=== PATIENT | male | born 1960 | race Caucasian/White ===

== ENCOUNTER 2019-12-24 20:02 | Inpatient (IN) | payer BC ==
[2019-12-24] MEDS ORDERED: Sodium Chloride 0.9% 10 ML Syringe FLUSH PRN (20:10)
[2019-12-24] MEDS ORDERED: Lactated Ringers 1,000 ML IV SCH (20:15)
--- NOTE | 2019-12-24 20:15 | EDM.PDOC ---
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 And then today extremely short of breath had difficulty walking across the room without getting winded. denies pain Pain Score (Numeric/FACES): 0 - Related Data Allergies Allergy/AdvReac Type Severity Reaction Status Date / Time No Known Allergies Allergy Verified 12/24/19 21:10 Home Meds: Home Meds NK [No Known Home Meds] 12/24/19 [History] Past Medical History - Past Health History Medical/Surgical History: Denies Medical/Surgical History Social & Family History - Tobacco Use Tobacco Use Status *Q: Never Tobacco User - Caffeine Use Caffeine Use: Reports: Coffee - Recreational Drug Use Recreational Drug Use: No ED ROS GENERAL - Review of Systems Review Of Systems: See Below Constitutional: Reports: Fever, Chills, Weakness HEENT: Reports: No Symptoms Respiratory: Reports: Shortness of Breath, Cough. Denies: Wheezing, Sputum Cardiovascular: Reports: Dyspnea on Exertion GI/Abdominal: Reports: Nausea, Vomiting. Denies: Abdominal Pain : Reports: No Symptoms Musculoskeletal: Reports: Muscle Pain Skin: Reports: No Symptoms ED EXAM, GENERAL - Physical Exam Exam: See Below Exam Limited By: Respiratory Distress (Ill-appearing) General Appearance: Alert, Severe Distress Throat/Mouth: Other (Mouth is dry) Respiratory/Chest: Respiratory Distress, Decreased Breath Sounds, Accessory Muscle Use, Other Cardiovascular: No Murmur, Tachycardia GI/Abdominal: Soft, Non-Tender Course - Vital Signs Last Recorded V/S: Last Vital Signs Temp 100.5 F 12/24/19 21:00 Pulse 110 H 12/24/19 21:56 Resp 21 H 12/24/19 21:56 BP 137/88 12/24/19 21:56 Pulse Ox 94 L 12/24/19 21:56 - Orders/Labs/Meds Orders: Active Orders 24 hr Category Date Time Status Peripheral IV Care [RC] . DIRECTED Care 12/24/19 20:11 Active RT Post Treatment Assessment [RC] Click to Edit Care 12/24/19 20:44 Active CULTURE BLOOD [BC] Urgent Lab 12/24/19 21:24 Ordered CULTURE BLOOD [BC] Urgent Lab 12/24/19 21:24 Ordered Acetaminophen [TylenoL] Med 12/24/19 20:10 Active 650 mg PO Q4H PRN Albuterol/Ipratropium [Combivent Respimat] Med 12/24/19 22:00 Active 1 gm INH QID Cefepime [Maxipime] 1 gm Med 12/24/19 22:00 Ordered Sodium Chloride 0.9% [Normal Saline] 50 ml IV Q12H Doxycycline [Vibramycin] 100 mg Med 12/24/19 21:55 Ordered Sodium Chloride 0.9% [Normal Saline] 100 ml IV ONETIME Lactated Ringers [Ringers, Lactated] 1,000 ml Med 12/24/19 20:15 Active IV ASDIRECTED Lactated Ringers [Ringers, Lactated] 1,000 ml Med 12/24/19 21:26 Active IV BOLUS Sodium Chloride 0.9% [Saline Flush] Med 12/24/19 20:10 Active 10 ml FLUSH ASDIRECTED PRN Blood Culture x2 Reflex Set [OM.PC] Urgent Oth 12/24/19 21:24 Ordered Isolation [COMM] Stat Oth 12/24/19 20:10 Ordered Peripheral IV Insertion Adult [OM.PC] Routine Oth 12/24/19 20:10 Ordered Medication Orders Acetaminophen (Tylenol) 650 mg PO Q4H PRN PRN Reason: Fever Greater Than 101 Last Admin: 12/24/19 20:24 Dose: 650 mg Documented by: DEVANTE Albuterol/Ipratropium (Combivent Respimat) 1 gm INH QID MANISHA Last Admin: 12/24/19 20:52 Dose: 2 inh Documented by: DEVANTE Lactated Ringer's (Ringers, Lactated) 1,000 mls @ 999 mls/hr IV ASDIRECTED MANISHA Last Admin: 12/24/19 20:33 Dose: 999 mls/hr Documented by: DEVANTE Lactated Ringer's (Ringers, Lactated) 1,000 mls @ 999 mls/hr IV BOLUS ONE Stop: 12/24/19 22:26 Last Admin: 12/24/19 21:49 Dose: 999 mls/hr Documented by: DEVANTE Cefepime HCl 1 gm/ Sodium (Chloride) 50 mls @ 100 mls/hr IV Q12H [facility] Doxycycline Hyclate 100 mg/ (Sodium Chloride) 100 mls @ 100 mls/hr IV ONETIME ONE Stop: 12/24/19 22:54 Sodium Chloride (Saline Flush) 10 ml FLUSH ASDIRECTED PRN PRN Reason: Keep Vein Open Last Admin: 12/24/19 20:32 Dose: 10 ml Documented by: DEVANTE Labs: Laboratory Tests 12/24/19 12/24/19 12/24/19 Range/Units 20:30 20:30 20:30 WBC 23.5 H (4.5-11.0) K/uL RBC 4.67 (4.30-5.90) M/uL Hgb 13.1 (12.0-15.0) g/dL Hct 40.5 (40.0-54.0) % MCV 87 (80-98) fL MCH 28 (27-31) pg MCHC 32 (32-36) % Plt Count 462 H (150-400) K/uL Neut % (Auto) 92 H (36-66) % Lymph % (Auto) 4 L (24-44) % [place] % (Auto) 4 (2-6) % Eos % (Auto) 0 L (2-4) % Baso % (Auto) 0 (0-1) % PT (9.5-12.0) sec INR (0.80-1.20) D-Dimer, Quantitative (0.0-400.0) ng/mL Puncture Site Rt radial ABG pH 7.501 H (7.350-7.450) ABG pCO2 27.9 L (35.0-42.0) mmHg ABG pO2 52.1 L (75.0-100.0) mmHg ABG HCO3 21.6 L (22.0-26.0) mmol/L ABG Total CO2 18.9 L (23.0-27.0) mmol/L ABG O2 Saturation 87.2 L (95.0-98.0) % ABG O2 Content 15.8 (15.0-23.0) %vol ABG Base Excess -0.1 mm/L ABG Hemoglobin 13.2 L (13.5-18.0) g/dL ABG Oxyhemoglobin 85.5 % ABG Carboxyhemoglobin 1.3 (0.0-1.6) % ABG Methemoglobin 0.7 % Giovanni Test Pass O2 Delivery Device Non rebr mask Oxygen Flow Rate 15.0 L Sodium 131 L (140-148) mmol/L Potassium 3.9 (3.6-5.2) mmol/L Chloride 94 L (100-108) mmol/L Carbon Dioxide 24 (21-32) mmol/L Anion Gap 16.9 H (5.0-14.0) mmol/L BUN 24 H (7-18) mg/dL Creatinine 1.6 H (0.8-1.3) mg/dL Est Cr Clr Drug Dosing 55.91 mL/min Estimated GFR (MDRD) 45 L (>60) Glucose 150 H (74-106) mg/dL Lactic Acid (0.4-2.0) mmol/L Calcium 9.0 (8.5-10.1) mg/dL Ferritin (8-388) ng/ml Total Bilirubin 0.5 (0.2-1.0) mg/dL Direct Bilirubin 0.20 (0.0-0.2) mg/dL Indirect Bilirubin 0.30 AST 94 H (15-37) U/L ALT 100 H (12-78) U/L Alkaline Phosphatase 110 (46-116) U/L Lactate Dehydrogenase 414 H (85-227) U/L Creatine Kinase 165 (39-308) U/L Troponin I (0.000-0.056) ng/mL C-Reactive Protein 40.07 H (0.0-0.3) mg/dL Total Protein 8.1 (6.4-8.2) g/dL Albumin 2.5 L (3.4-5.0) g/dL Globulin 5.6 H (2.3-3.5) g/dL Albumin/Globulin Ratio 0.5 L (1.2-2.2) Procalcitonin ng/mL 12/24/19 12/24/1920 Range/Units 20:30 20:30 20:30 WBC (4.5-11.0) K/uL RBC (4.30-5.90) M/uL Hgb (12.0-15.0) g/dL Hct (40.0-54.0) % MCV (80-98) fL MCH (27-31) pg MCHC (32-36) % Plt Count (150-400) K/uL Neut % (Auto) (36-66) % Lymph % (Auto) (24-44) % [place] % (Auto) (2-6) % Eos % (Auto) (2-4) % Baso % (Auto) (0-1) % PT 12.3 H (9.5-12.0) sec INR 1.13 (0.80-1.20) D-Dimer, Quantitative (0.0-400.0) ng/mL Puncture Site ABG pH (7.350-7.450) ABG pCO2 (35.0-42.0) mmHg ABG pO2 (75.0-100.0) mmHg ABG HCO3 (22.0-26.0) mmol/L ABG Total CO2 (23.0-27.0) mmol/L ABG O2 Saturation (95.0-98.0) % ABG O2 Content (15.0-23.0) %vol ABG Base Excess mm/L ABG Hemoglobin (13.5-18.0) g/dL ABG Oxyhemoglobin % ABG Carboxyhemoglobin (0.0-1.6) % ABG Methemoglobin % Giovanni Test O2 Delivery Device Oxygen Flow Rate L Sodium (140-148) mmol/L Potassium (3.6-5.2) mmol/L Chloride (100-108) mmol/L Carbon Dioxide (21-32) mmol/L Anion Gap (5.0-14.0) mmol/L BUN (7-18) mg/dL Creatinine (0.8-1.3) mg/dL Est Cr Clr Drug Dosing mL/min Estimated GFR (MDRD) (>60) Glucose (74-106) mg/dL Lactic Acid 3.2 H (0.4-2.0) mmol/L Calcium (8.5-10.1) mg/dL Ferritin (8-388) ng/ml Total Bilirubin (0.2-1.0) mg/dL Direct Bilirubin (0.0-0.2) mg/dL Indirect Bilirubin AST (15-37) U/L ALT (12-78) U/L Alkaline Phosphatase (46-116) U/L Lactate Dehydrogenase (85-227) U/L Creatine Kinase (39-308) U/L Troponin I (0.000-0.056) ng/mL C-Reactive Protein (0.0-0.3) mg/dL Total Protein (6.4-8.2) g/dL Albumin (3.4-5.0) g/dL Globulin (2.3-3.5) g/dL Albumin/Globulin Ratio (1.2-2.2) Procalcitonin 2.87 H* ng/mL 12/24/19 12/24/19 Range/Units 20:30 21:01 WBC (4.5-11.0) K/uL RBC (4.30-5.90) M/uL Hgb (12.0-15.0) g/dL Hct (40.0-54.0) % MCV (80-98) fL MCH (27-31) pg MCHC (32-36) % Plt Count (150-400) K/uL Neut % (Auto) (36-66) % Lymph % (Auto) (24-44) % [place] % (Auto) (2-6) % Eos % (Auto) (2-4) % Baso % (Auto) (0-1) % PT (9.5-12.0) sec INR (0.80-1.20) D-Dimer, Quantitative 2670 H (0.0-400.0) ng/mL Puncture Site ABG pH (7.350-7.450) ABG pCO2 (35.0-42.0) mmHg ABG pO2 (75.0-100.0) mmHg ABG HCO3 (22.0-26.0) mmol/L ABG Total CO2 (23.0-27.0) mmol/L ABG O2 Saturation (95.0-98.0) % ABG O2 Content (15.0-23.0) %vol ABG Base Excess mm/L ABG Hemoglobin (13.5-18.0) g/dL ABG Oxyhemoglobin % ABG Carboxyhemoglobin (0.0-1.6) % ABG Methemoglobin % Giovanni Test O2 Delivery Device Oxygen Flow Rate L Sodium (140-148) mmol/L Potassium (3.6-5.2) mmol/L Chloride (100-108) mmol/L Carbon Dioxide (21-32) mmol/L Anion Gap (5.0-14.0) mmol/L BUN (7-18) mg/dL Creatinine (0.8-1.3) mg/dL Est Cr Clr Drug Dosing mL/min Estimated GFR (MDRD) (>60) Glucose (74-106) mg/dL Lactic Acid (0.4-2.0) mmol/L Calcium (8.5-10.1) mg/dL Ferritin 744 H (8-388) ng/ml Total Bilirubin (0.2-1.0) mg/dL Direct Bilirubin (0.0-0.2) mg/dL Indirect Bilirubin AST (15-37) U/L ALT (12-78) U/L Alkaline Phosphatase (46-116) U/L Lactate Dehydrogenase (85-227) U/L Creatine Kinase (39-308) U/L Troponin I 0.072 H* (0.000-0.056) ng/mL C-Reactive Protein (0.0-0.3) mg/dL Total Protein (6.4-8.2) g/dL Albumin (3.4-5.0) g/dL Globulin (2.3-3.5) g/dL Albumin/Globulin Ratio (1.2-2.2) Procalcitonin ng/mL Meds: Medications Generic Name Dose Route Start Last Admin Trade Name Freq PRN Reason Stop Dose Admin Acetaminophen 650 mg 12/24/19 20:10 12/24/19 20:24 Tylenol PO 650 mg Q4H PRN Administration Fever Greater Than 101 Albuterol/Ipratropium 1 gm 12/24/19 22:00 12/24/19 20:52 Combivent Respimat INH 2 inh QID MANISHA Administration Lactated Ringer's 1,000 mls @ 999 mls/hr 12/24/19 20:15 12/24/19 20:33 Ringers, Lactated IV 999 mls/hr ASDIRECTED MANISHA Administration Lactated Ringer's 1,000 mls @ 999 mls/hr 12/24/19 21:26 12/24/19 21:49 Ringers, Lactated IV 12/24/19 22:26 999 mls/hr BOLUS ONE Administration Cefepime HCl 1 gm/ Sodium 50 mls @ 100 mls/hr 12/24/19 22:00 Chloride IV Q12H MANISHA Doxycycline Hyclate 100 mg/ 100 mls @ 100 mls/hr 12/24/19 21:55 Sodium Chloride IV 12/24/19 22:54 ONETIME ONE Sodium Chloride 10 ml 12/24/19 20:10 12/24/19 20:32 Saline Flush FLUSH 10 ml ASDIRECTED PRN Administration Keep Vein Open Departure - Departure Time of Disposition: 22:08 Disposition: Admitted As Inpatient 68 Condition: Fair Clinical Impression: COVID-19, Acute hypoxemic respiratory failure due to COVID-19 - Discharge Information Referrals: PCP,None [Primary Care Provider] - Forms: ED Department Discharge Sepsis Event Note (ED) - Evaluation Sepsis Screening Result: Possible Sepsis Risk - Focused Exam Vital Signs: Vital Signs Temp Temp Pulse Resp BP Pulse Ox 12/24/19 21:56 110 H 21 H 137/88 94 L 12/24/19 21:22 116 H 16 126/74 87 L 12/24/19 21:00 100.5 F 119 H 37 H 132/72 94 L 12/24/19 20:37 101.5 F H 127 H 33 H 149/77 H 84 L 12/24/19 20:24 103.0 F H 12/24/19 20:07 103.0 F H 133 H 13 147/63 H 88 L 12/24/19 20:06 103.0 F H 133 H 13 147/63 H 88 L - My Orders Last 24 Hours: My Active Orders 12/24/19 20:10 Acetaminophen [TylenoL] 650 mg PO Q4H PRN Sodium Chloride 0.9% [Saline Flush] 10 ml FLUSH ASDIRECTED PRN Isolation [COMM] Stat Peripheral IV Insertion Adult [OM.PC] Routine 12/24/19 20:11 Peripheral IV Care [RC] . DIRECTED 12/24/19 20:15 Lactated Ringers [Ringers, Lactated] 1,000 ml IV ASDIRECTED 12/24/19 20:44 RT Post Treatment Assessment [RC] Click to Edit 12/24/19 21:24 CULTURE BLOOD [BC] Urgent CULTURE BLOOD [BC] Urgent Blood Culture x2 Reflex Set [OM.PC] Urgent 12/24/19 21:26 Lactated Ringers [Ringers, Lactated] 1,000 ml IV BOLUS 12/24/19 21:55 Doxycycline [Vibramycin] 100 mg Sodium Chloride 0.9% [Normal Saline] 100 ml IV ONETIME 12/24/19 22:00 Albuterol/Ipratropium [Combivent Respimat] 1 gm INH QID Cefepime [Maxipime] 1 gm Sodium Chloride 0.9% [Normal Saline] 50 ml IV Q12H - Assessment/Plan Last 24 Hours: My Active Orders 12/24/19 20:10 Acetaminophen [TylenoL] 650 mg PO Q4H PRN Sodium Chloride 0.9% [Saline Flush] 10 ml FLUSH ASDIRECTED PRN Isolation [COMM] Stat Peripheral IV Insertion Adult [OM.PC] Routine 12/24/19 20:11 Peripheral IV Care [RC] . DIRECTED 12/24/19 20:15 Lactated Ringers [Ringers, Lactated] 1,000 ml IV ASDIRECTED 12/24/19 20:44 RT Post Treatment Assessment [RC] Click to Edit 12/24/19 21:24 CULTURE BLOOD [BC] Urgent CULTURE BLOOD [BC] Urgent Blood Culture x2 Reflex Set [OM.PC] Urgent 12/24/19 21:26 Lactated Ringers [Ringers, Lactated] 1,000 ml IV BOLUS 12/24/19 21:55 Doxycycline [Vibramycin] 100 mg Sodium Chloride 0.9% [Normal Saline] 100 ml IV ONETIME 12/24/19 22:00 Albuterol/Ipratropium [Combivent Respimat] 1 gm INH QID Cefepime [Maxipime] 1 gm Sodium Chloride 0.9% [Normal Saline] 50 ml IV Q12H Plan: Assessment Acuity = acute Site and laterality = hypoxic respiratory failure complicated patient with known history COVID-19 Etiology = complications COVID-19 Manifestations = hypoxia, tachycardia Location of injury = Home Lab values = WBC elevated 23.5 consistent with lupus cytosis D-dimer elevated 2670 ABG reveals pH 7.5 PCO2 27.9 and bicarb 21.6, sodium low at 131 consistent hyponatremia creatinine elevated 1.6 consistent with acute renal failure stage G3P lactic acid elevated 3.2 consistent lactic acidosis ferritin elevated 744 AST at 94 ALT 100 elevated liver enzymes LDH elevated 414 troponin elevated 0.072 CRP elevated 40.07 albumin low at 2.5 consistent hypoalbuminemia procalcitonin elevated 2.87 chest x-ray shows groundglass appearance bilaterally consistent with COVID-19 infection blood cultures are pending Plan Call discussed case hospitalist on-call at [phone] he kindly agreed to come and evaluate the patient emergency department for admission recommend starting antibiotics cefepime and doxycycline he has received 2 L of lactated Ringer's This note was dictated using [employer] voice recognition software please call with any questions on syntax or grammar.
[2019-12-24] MEDS: Acetaminophen 325 MG Tab PO PRN (20:24)
[2019-12-24] MEDS ORDERED: Lactated Ringers 1,000 ML IV ONE (21:26)
--- NOTE | 2019-12-24 21:37 | CRLCR ---
INDICATION: Respiratory failure, COVID-19 Positive TECHNIQUE: Chest radiograph 1 view COMPARISON: None FINDINGS: Mediastinum: The mediastinum is normal in appearance. The heart silhouette is normal in size and morphology. Lung: Patchy ground-glass opacities are present in the left perihilar region and bilateral lung bases with mild bibasilar atelectasis. No sign of pleural effusion seen. No pneumothorax is identified. Bone and Soft tissue: Unremarkable for age. IMPRESSION: 1. Patchy ground-glass opacities are present in the left perihilar region and bilateral lung bases with mild bibasilar atelectasis. Findings are consistent with COVID-19 infection. Dictated by Kirk Marvin MD @ 12/24/2019 9:36:15 PM Dictated by: Kirk Marvin MD @ 12/24/2019 21:36:18 (Electronically Signed)
[2019-12-24] MEDS ORDERED: Doxycycline 100 MG in Sodium Chloride 0.9% 100 ML IV ONE (21:55)
[2019-12-24] MEDS ORDERED: Albuterol/Ipratropium 4 GM Inhalation Spray INH SCH (22:00)
[2019-12-24] MEDS: Cefepime 1 GM in Sodium Chloride 0.9% 50 ML IV SCH (22:35)
[2019-12-24] MEDS ORDERED: Dexamethasone 4 MG Tab PO ONE (22:53)
--- NOTE | 2019-12-24 23:44 | PCM.HP.2 ---
H&P History of Present Illness - General Date of Service: 12/24/19 Admit Problem/Dx: Admission Diagnosis/Problem Admission Diagnosis/Problem Pneumonia Source of Information: Patient, Provider History Limitations: Reports: No Limitations - History of Present Illness Initial Comments - Free Text/Narative: CC: I'm sick HPI: Yaniv presents to the emergency room today with significant shortness of breath that has progressed fairly rapidly over the past 2 days. He notes that h is first onset of symptoms was about 7 or 8 days ago and he has since been diagnosed with COVID-19 infection. He noted a mild shortness of breath with occasional cough as well as very low-grade fevers and some minor myalgias. Over the course of the next 7 days and especially the last 2 or 3 days he has had increasing shortness of breath, weakness as well as high fevers with shaking chills, diaphoresis and diffuse myalgias. His appetite and energy have decreased quickly. Any sort of activity causes him to be short of breath and now he is short of breath even at rest. He does not report any chest pain. He does not have any abdominal pain but he does have some diarrhea. No skin rashes or lower extremity edema. No loss of taste or smell. No sore throat or runny nose. He does have occasional mild headaches. Work-up in the emergency room revealed significant hypoxic respiratory failure and he is currently needing 10 to 12 L of supplemental oxygen. Chest x-ray shows bibasilar infiltrates as well as a right infrahilar infiltrate. He has an elevated white count, elevated platelets and elevated procalcitonin as well as elevated D-dimer, lactic acid, lactate dehydrogenase and severely elevated CRP. He has received empiric antibiotics as well as dexamethasone. He will be admit raymon to the intensive care unit for further management. denies pain Pain Score (Numeric/FACES): 0 - Related Data Allergies/Adverse Reactions: Allergies Allergy/AdvReac Type Severity Reaction Status Date / Time No Known Allergies Allergy Verified 12/24/19 21:10 Home Medications: Home Meds NK [No Known Home Meds] 12/24/19 [History] Past Medical History - Past Health History Medical/Surgical History: Denies Medical/Surgical History HEENT History: Reports: Impaired Vision, Other (See Below) Other HEENT History: glasses Musculoskeletal History: Reports: Fracture, Other (See Below) Other Musculoskeletal History: R arm fx - Infectious Disease History Infectious Disease History: Reports: Chicken Pox, Measles, Mumps, Novel Coronavirus Social & Family History - Family History Cardiac: Denies: CAD - Tobacco Use Tobacco Use Status *Q: Never Tobacco User - Caffeine Use Caffeine Use: Reports: Coffee - Recreational Drug Use Recreational Drug Use: No H&P Review of Systems - Review of Systems: Review Of Systems: See Below Free Text/Narrative: A complete 12 point review of systems was obtained. Pertinent positives and negatives are noted in the history of present illness. All other systems were reviewed and were negative except as noted. Exam - Exam Exam: See Below - Vital Signs Vital Signs: Last Vital Signs Temp 35.3 C L 12/24/19 23:00 Pulse 103 H 12/24/19 23:00 Resp 21 H 12/24/19 23:00 BP 147/96 H 12/24/19 23:00 Pulse Ox 86 L 12/24/19 23:00 Weight: 102.058 kg - Exam Quality Assessment: Supplemental Oxygen General: Alert, Oriented, Cooperative, Moderate Distress HEENT: Conjunctiva Clear. No: Mucosa Moist & [place] (dry), Scleral Icterus Neck: Supple, Trachea Midline. No: Lymphadenopathy Lungs: Crackles (both bases posteriorly and right lower anterior chest ), Rhonchi (moderate right lower lung with expiration ). No: Normal Respiratory Effort (increased work of breathing ), Wheezing Cardiovascular: Regular Rhythm, Tachycardia. No: Systolic Murmur GI/Abdominal Exam: Normal Bowel Sounds, Soft, Non-Tender, No Distention Extremities: No Pedal Edema. No: Increased Warmth Peripheral Pulses: 2+: Dorsalis Pedis (L), Dorsalis Pedis (R) Skin: Warm, Dry Neuro Extensive - Mental Status: Alert, Oriented x3, Nl Response to Commands Neuro Extensive - Motor, Sensory, Reflexes: No: Dysarthria, Abnormal Motor, Tremor Psychiatric: Alert, Normal Affect - Patient Data Lab Results Last 24 hrs: Laboratory Results - last 24 hr 12/24/19 12/24/19 12/24/19 Range/Units 20:30 20:30 20:30 WBC 23.5 H (4.5-11.0) K/uL RBC 4.67 (4.30-5.90) M/uL Hgb 13.1 (12.0-15.0) g/dL Hct 40.5 (40.0-54.0) % MCV 87 (80-98) fL MCH 28 (27-31) pg MCHC 32 (32-36) % Plt Count 462 H (150-400) K/uL Neut % (Auto) 92 H (36-66) % Lymph % (Auto) 4 L (24-44) % Ferry % (Auto) 4 (2-6) % Eos % (Auto) 0 L (2-4) % Baso % (Auto) 0 (0-1) % PT (9.5-12.0) sec INR (0.80-1.20) D-Dimer, Quantitative (0.0-400.0) ng/mL Puncture Site Rt radial ABG pH 7.501 H (7.350-7.450) ABG pCO2 27.9 L (35.0-42.0) mmHg ABG pO2 52.1 L (75.0-100.0) mmHg ABG HCO3 21.6 L (22.0-26.0) mmol/L ABG Total CO2 18.9 L (23.0-27.0) mmol/L ABG O2 Saturation 87.2 L (95.0-98.0) % ABG O2 Content 15.8 (15.0-23.0) %vol ABG Base Excess -0.1 mm/L ABG Hemoglobin 13.2 L (13.5-18.0) g/dL ABG Oxyhemoglobin 85.5 % ABG Carboxyhemoglobin 1.3 (0.0-1.6) % ABG Methemoglobin 0.7 % Giovanni Test Pass O2 Delivery Device Non rebr mask Oxygen Flow Rate 15.0 L Sodium 131 L (140-148) mmol/L Potassium 3.9 (3.6-5.2) mmol/L Chloride 94 L (100-108) mmol/L Carbon Dioxide 24 (21-32) mmol/L Anion Gap 16.9 H (5.0-14.0) mmol/L BUN 24 H (7-18) mg/dL Creatinine 1.6 H (0.8-1.3) mg/dL Est Cr Clr Drug Dosing 55.91 mL/min Estimated GFR (MDRD) 45 L (>60) Glucose 150 H (74-106) mg/dL Lactic Acid (0.4-2.0) mmol/L Calcium 9.0 (8.5-10.1) mg/dL Ferritin (8-388) ng/ml Total Bilirubin 0.5 (0.2-1.0) mg/dL Direct Bilirubin 0.20 (0.0-0.2) mg/dL Indirect Bilirubin 0.30 AST 94 H (15-37) U/L ALT 100 H (12-78) U/L Alkaline Phosphatase 110 (46-116) U/L Lactate Dehydrogenase 414 H (85-227) U/L Creatine Kinase 165 (39-308) U/L Troponin I (0.000-0.056) ng/mL C-Reactive Protein 40.07 H (0.0-0.3) mg/dL Total Protein 8.1 (6.4-8.2) g/dL Albumin 2.5 L (3.4-5.0) g/dL Globulin 5.6 H (2.3-3.5) g/dL Albumin/Globulin Ratio 0.5 L (1.2-2.2) Procalcitonin ng/mL 12/24/19 12/24/19 12/24/19 Range/Units 20:30 20:30 20:30 WBC (4.5-11.0) K/uL RBC (4.30-5.90) M/uL Hgb (12.0-15.0) g/dL Hct (40.0-54.0) % MCV (80-98) fL MCH (27-31) pg MCHC (32-36) % Plt Count (150-400) K/uL Neut % (Auto) (36-66) % Lymph % (Auto) (24-44) % Ferry % (Auto) (2-6) % Eos % (Auto) (2-4) % Baso % (Auto) (0-1) % PT 12.3 H (9.5-12.0) sec INR 1.13 (0.80-1.20) D-Dimer, Quantitative (0.0-400.0) ng/mL Puncture Site ABG pH (7.350-7.450) ABG pCO2 (35.0-42.0) mmHg ABG pO2 (75.0-100.0) mmHg ABG HCO3 (22.0-26.0) mmol/L ABG Total CO2 (23.0-27.0) mmol/L ABG O2 Saturation (95.0-98.0) % ABG O2 Content (15.0-23.0) %vol ABG Base Excess mm/L ABG Hemoglobin (13.5-18.0) g/dL ABG Oxyhemoglobin % ABG Carboxyhemoglobin (0.0-1.6) % ABG Methemoglobin % Giovanni Test O2 Delivery Device Oxygen Flow Rate L Sodium (140-148) mmol/L Potassium (3.6-5.2) mmol/L Chloride (100-108) mmol/L Carbon Dioxide (21-32) mmol/L Anion Gap (5.0-14.0) mmol/L BUN (7-18) mg/dL Creatinine (0.8-1.3) mg/dL Est Cr Clr Drug Dosing mL/min Estimated GFR (MDRD) (>60) Glucose (74-106) mg/dL Lactic Acid 3.2 H (0.4-2.0) mmol/L Calcium (8.5-10.1) mg/dL Ferritin (8-388) ng/ml Total Bilirubin (0.2-1.0) mg/dL Direct Bilirubin (0.0-0.2) mg/dL Indirect Bilirubin AST (15-37) U/L ALT (12-78) U/L Alkaline Phosphatase (46-116) U/L Lactate Dehydrogenase (85-227) U/L Creatine Kinase (39-308) U/L Troponin I (0.000-0.056) ng/mL C-Reactive Protein (0.0-0.3) mg/dL Total Protein (6.4-8.2) g/dL Albumin (3.4-5.0) g/dL Globulin (2.3-3.5) g/dL Albumin/Globulin Ratio (1.2-2.2) Procalcitonin 2.87 H* ng/mL 12/24/19 12/24/19 Range/Units 20:30 21:01 WBC (4.5-11.0) K/uL RBC (4.30-5.90) M/uL Hgb (12.0-15.0) g/dL Hct (40.0-54.0) % MCV (80-98) fL MCH (27-31) pg MCHC (32-36) % Plt Count (150-400) K/uL Neut % (Auto) (36-66) % Lymph % (Auto) (24-44) % Ferry % (Auto) (2-6) % Eos % (Auto) (2-4) % Baso % (Auto) (0-1) % PT (9.5-12.0) sec INR (0.80-1.20) D-Dimer, Quantitative 2670 H (0.0-400.0) ng/mL Puncture Site ABG pH (7.350-7.450) ABG pCO2 (35.0-42.0) mmHg ABG pO2 (75.0-100.0) mmHg ABG HCO3 (22.0-26.0) mmol/L ABG Total CO2 (23.0-27.0) mmol/L ABG O2 Saturation (95.0-98.0) % ABG O2 Content (15.0-23.0) %vol ABG Base Excess mm/L ABG Hemoglobin (13.5-18.0) g/dL ABG Oxyhemoglobin % ABG Carboxyhemoglobin (0.0-1.6) % ABG Methemoglobin % Giovanni Test O2 Delivery Device Oxygen Flow Rate L Sodium (140-148) mmol/L Potassium (3.6-5.2) mmol/L Chloride (100-108) mmol/L Carbon Dioxide (21-32) mmol/L Anion Gap (5.0-14.0) mmol/L BUN (7-18) mg/dL Creatinine (0.8-1.3) mg/dL Est Cr Clr Drug Dosing mL/min Estimated GFR (MDRD) (>60) Glucose (74-106) mg/dL Lactic Acid (0.4-2.0) mmol/L Calcium (8.5-10.1) mg/dL Ferritin 744 H (8-388) ng/ml Total Bilirubin (0.2-1.0) mg/dL Direct Bilirubin (0.0-0.2) mg/dL Indirect Bilirubin AST (15-37) U/L ALT (12-78) U/L Alkaline Phosphatase (46-116) U/L Lactate Dehydrogenase (85-227) U/L Creatine Kinase (39-308) U/L Troponin I 0.072 H* (0.000-0.056) ng/mL C-Reactive Protein (0.0-0.3) mg/dL Total Protein (6.4-8.2) g/dL Albumin (3.4-5.0) g/dL Globulin (2.3-3.5) g/dL Albumin/Globulin Ratio (1.2-2.2) Procalcitonin ng/mL Result Diagrams: 12/24/19 20:30 12/24/19 20:30 Imaging Impressions Last 24 hrs: CXR-this image was personally reviewed-there are bibasilar infiltrates as well as a RML infiltrate. heart size is normal. No mass or effusion. Sepsis Event Note - Evaluation Sepsis Screening Result: Possible Sepsis Risk - Focused Exam Vital Signs: Vital Signs Temp Temp Pulse Resp BP Pulse Ox 12/24/19 23:00 35.3 C L 103 H 21 H 147/96 H 86 L 12/24/19 22:00 37.2 C 103 H 16 136/91 H 83 L 12/24/19 21:56 110 H 21 H 137/88 94 L 12/24/19 21:22 116 H 16 126/74 87 L 12/24/19 21:00 38.1 C 119 H 37 H 132/72 94 L 12/24/19 20:54 37.2 C 12/24/19 20:37 38.6 C H 127 H 33 H 149/77 H 84 L 12/24/19 20:24 39.4 C H 12/24/19 20:07 39.4 C H 133 H 13 147/63 H 88 L 12/24/19 20:06 39.4 C H 133 H 13 147/63 H 88 L *Q Meaningful Use (ADM) - VTE Risk Assess *Q Each Risk Factor Represents 1 Point: Age 41 - 59 years, Obesity ( BMI > 25 kg/m2) Total Score 1 Point Risk Factors: 2 Each Risk Factor Represents 2 Points: None Total Score 2 Point Risk Factors: 0 Each Risk Factor Represents 3 Points: None Total Score 3 Point Risk Factors: 0 Each Risk Factor Represents 5 Points: None Total Score 5 Point Risk Factors: 0 Venous Thromboembolism Risk Factor Score *Q: 2 - Problem List (1) Pneumonia due to COVID-19 virus SNOMED Code(s): 361711396629808155 ICD Code: U07.1 - COVID-19; J12.89 - OTHER VIRAL PNEUMONIA Status: Acute Current Visit: Yes (2) Acute hypoxemic respiratory failure due to COVID-19 SNOMED Code(s): 269642888 ICD Code: U07.1 - COVID-19; J96.01 - ACUTE RESPIRATORY FAILURE WITH HYPOXIA Status: Acute Current Visit: Yes (3) Acute kidney injury SNOMED Code(s): 68173515, 22545591 ICD Code: N17.9 - ACUTE KIDNEY FAILURE, UNSPECIFIED Status: Acute Current Visit: Yes Problem List Initiated/Reviewed/Updated: Yes Orders Last 24hrs: Active Orders 24 hr Category Date Time Status Patient Status Manage Transfer [TRANSFER] Routine ADT 12/24/19 23:28 Ordered Peripheral IV Care [RC] . DIRECTED Care 12/24/19 20:11 Active RT Post Treatment Assessment [RC] Click to Edit Care 12/24/19 20:44 Active CULTURE BLOOD [BC] Urgent Lab 12/24/19 21:30 Received CULTURE BLOOD [BC] Urgent Lab 12/24/19 21:42 Received Acetaminophen [TylenoL] Med 12/24/19 20:10 Active 650 mg PO Q4H PRN Albuterol/Ipratropium [Combivent Respimat] Med 12/24/19 22:00 Active 1 gm INH QID Cefepime [Maxipime] 1 gm Med 12/24/19 22:00 Active Sodium Chloride 0.9% [Normal Saline] 50 ml IV Q12H Lactated Ringers [Ringers, Lactated] 1,000 ml Med 12/24/19 20:15 Active IV ASDIRECTED Sodium Chloride 0.9% [Saline Flush] Med 12/24/19 20:10 Active 10 ml FLUSH ASDIRECTED PRN Blood Culture x2 Reflex Set [OM.PC] Urgent Oth 12/24/19 21:24 Ordered Isolation [COMM] Stat Oth 12/24/19 20:10 Ordered Peripheral IV Insertion Adult [OM.PC] Routine Oth 12/24/19 20:10 Ordered Resuscitation Status Routine Resus Stat 12/24/19 23:30 Ordered Medication Orders Acetaminophen (Tylenol) 650 mg PO Q4H PRN PRN Reason: Fever Greater Than 101 Last Admin: 12/24/19 20:24 Dose: 650 mg Documented by: DEVANTE Albuterol/Ipratropium (Combivent Respimat) 1 gm INH QID [facility] Last Admin: 12/24/19 20:52 Dose: 2 inh Documented by: DEVANTE Lactated Ringer's (Ringers, Lactated) 1,000 mls @ 999 mls/hr IV ASDIRECTED [facility] Last Admin: 12/24/19 20:33 Dose: 999 mls/hr Documented by: DEVANTE Cefepime HCl 1 gm/ Sodium (Chloride) 50 mls @ 100 mls/hr IV Q12H [facility] Last Admin: 12/24/19 22:35 Dose: 100 mls/hr Documented by: DEVANTE Sodium Chloride (Saline Flush) 10 ml FLUSH ASDIRECTED PRN PRN Reason: Keep Vein Open Last Admin: 12/24/19 20:32 Dose: 10 ml Documented by: DEVANTE Assessment/Plan Comment:: ASSESSMENT AND PLAN - COVID-19 infection with bilateral pneumonia and acute respiratory failure with hypoxemia-acutely ill with significant oxygen requirement and tachypnea. D- dimer is quite elevated as is his CPR. Mild elevation of LDH and lactate. He also has elevated white count, platelets and procalcitonin that raises concern for a superimposed bacterial infection. He has received dexamethasone as well as empiric antibiotics. Cultures have been obtained. We did discuss the risk versus benefit of remdesivir and at this time he is interested in trying remdesivir. It is noted that his AST and ALT are mildly elevated and will need to be monitored closely. -ICU admission -Dexamethasone 6 mg every 24 hours -Remdesivir 200 mg x 1 then 100 mg daily x4 -Enoxaparin 40 mg every 12 hours -Supplement oxygen as needed -Prone positioning as much as he can tolerate -Daily weights -Cardiac monitoring and pulse oximetry -Consider transfer to higher level of care if condition deteriorates Acute kidney injury-poor intake and acute illness. He did receive just over 1 L of fluids in the emergency room. Plan is to try to run him as dry as possible with the Covid infection. -P.o. intake -Recheck labs in the morning Maintenance issues - - DVT prophylaxis -enoxaparin - GI prophylaxis -PPI - Nutrition -regular diet as tolerated - Haskins catheter -not indicated CODE STATUS -full code Admission justification -this patient will be admitted for inpatient services and is medically appropriate meeting medical necessity for inpatient admission as outlined in my documentation. I reasonably expect the patient will require inpatient services that span a period time over 2 midnights. I reasonably expect this patient to be discharged or transferred within 96 hours after admission to the Critical [facility]. Disposition -anticipate discharge home after the hospital stay Joel Gomez M.D. - Mortality Measure Prognosis:: Good
[2019-12-24] MEDS ORDERED: Ondansetron 4 MG Tab.DIS PO PRN (23:52)
[2019-12-24] MEDS ORDERED: LORazepam 2 MG/ML SDV IVPUSH PRN (23:52)
[2019-12-24] MEDS ORDERED: Enoxaparin 100 MG/1 ML Syringe SUBCUT SCH (23:52)
[2019-12-24] MEDS ORDERED: Benzonatate 100 MG Cap PO PRN (23:52)
[2019-12-24] MEDS ORDERED: guaiFENesin/Dextromethorphan 100-10 MG/5 ML Soln 10 ML Cup PO PRN (23:52)
[2019-12-24] MEDS ORDERED: Ondansetron 4 MG/2 ML SDV IV PRN (23:52)
[2019-12-25] MEDS: Loperamide 2 MG Cap PO PRN ×2 (00:47→16:50)
[2019-12-25] MEDS: Pantoprazole 40 MG Tab.CR PO SCH (08:47)
[2019-12-25] MEDS: Doxycycline 100 MG Cap PO SCH ×2 (10:16→23:37)
[2019-12-25] MEDS: Cefepime 1 GM in Sodium Chloride 0.9% 50 ML IV SCH ×3 (10:16→21:20)
--- NOTE | 2019-12-25 10:45 | PCM.PN ---
- General Info Date of Service: 12/25/19 Subjective Update: No acute events overnight following admission. Oxygenation has been quite compromised but stable since admission. He is currently on 10 L of high flow nasal cannula. Oxygenation is acceptable at rest but he does desaturate quickly with any sort of activity. Diaphoresis has resolved overnight. He feels less short of breath today. Able to tolerate prone position intermittently though not for an extended period of time. Still has a nonproductive cough. No chest pain. For the most part all of his laboratory studies are stable compared to last night. Functional Status: Reports: Pain Controlled, Tolerating Diet - Review of Systems General: Reports: Fever, Weakness Pulmonary: Reports: Shortness of Breath - Patient Data Vitals - Most Recent: Last Vital Signs Temp 35.9 C L 12/25/19 08:00 Pulse 89 12/25/19 08:55 Resp 31 H 12/25/19 08:55 BP 140/83 12/25/19 08:55 Pulse Ox 88 L 12/25/19 08:55 Weight - Most Recent: 102.058 kg I&O - Last 24 Hours: Intake & Output 12/24/19 12/25/19 12/25/19 22:59 06:59 14:59 Intake Total 60 Balance 60 Lab Results Last 24 Hours: Laboratory Results - last 24 hr 12/24/19 12/24/19 12/24/19 Range/Units 20:30 20:30 20:30 WBC 23.5 H (4.5-11.0) K/uL RBC 4.67 (4.30-5.90) M/uL Hgb 13.1 (12.0-15.0) g/dL Hct 40.5 (40.0-54.0) % MCV 87 (80-98) fL MCH 28 (27-31) pg MCHC 32 (32-36) % Plt Count 462 H (150-400) K/uL Neut % (Auto) 92 H (36-66) % Lymph % (Auto) 4 L (24-44) % [place] % (Auto) 4 (2-6) % Eos % (Auto) 0 L (2-4) % Baso % (Auto) 0 (0-1) % PT (9.5-12.0) sec INR (0.80-1.20) D-Dimer, Quantitative (0.0-400.0) ng/mL Puncture Site Rt radial ABG pH 7.501 H (7.350-7.450) ABG pCO2 27.9 L (35.0-42.0) mmHg ABG pO2 52.1 L (75.0-100.0) mmHg ABG HCO3 21.6 L (22.0-26.0) mmol/L ABG Total CO2 18.9 L (23.0-27.0) mmol/L ABG O2 Saturation 87.2 L (95.0-98.0) % ABG O2 Content 15.8 (15.0-23.0) %vol ABG Base Excess -0.1 mm/L ABG Hemoglobin 13.2 L (13.5-18.0) g/dL ABG Oxyhemoglobin 85.5 % ABG Carboxyhemoglobin 1.3 (0.0-1.6) % ABG Methemoglobin 0.7 % Giovanni Test Pass O2 Delivery Device Non rebr mask Oxygen Flow Rate 15.0 L Sodium 131 L (140-148) mmol/L Potassium 3.9 (3.6-5.2) mmol/L Chloride 94 L (100-108) mmol/L Carbon Dioxide 24 (21-32) mmol/L Anion Gap 16.9 H (5.0-14.0) mmol/L BUN 24 H (7-18) mg/dL Creatinine 1.6 H (0.8-1.3) mg/dL Est Cr Clr Drug Dosing 55.91 mL/min Estimated GFR (MDRD) 45 L (>60) Glucose 150 H (74-106) mg/dL Lactic Acid (0.4-2.0) mmol/L Calcium 9.0 (8.5-10.1) mg/dL Ferritin (8-388) ng/ml Total Bilirubin 0.5 (0.2-1.0) mg/dL Direct Bilirubin 0.20 (0.0-0.2) mg/dL Indirect Bilirubin 0.30 AST 94 H (15-37) U/L ALT 100 H (12-78) U/L Alkaline Phosphatase 110 (46-116) U/L Lactate Dehydrogenase 414 H (85-227) U/L Creatine Kinase 165 (39-308) U/L Troponin I (0.000-0.056) ng/mL C-Reactive Protein 40.07 H (0.0-0.3) mg/dL Total Protein 8.1 (6.4-8.2) g/dL Albumin 2.5 L (3.4-5.0) g/dL Globulin 5.6 H (2.3-3.5) g/dL Albumin/Globulin Ratio 0.5 L (1.2-2.2) Procalcitonin ng/mL 12/24/19 12/24/19 12/24/19 Range/Units 20:30 20:30 20:30 WBC (4.5-11.0) K/uL RBC (4.30-5.90) M/uL Hgb (12.0-15.0) g/dL Hct (40.0-54.0) % MCV (80-98) fL MCH (27-31) pg MCHC (32-36) % Plt Count (150-400) K/uL Neut % (Auto) (36-66) % Lymph % (Auto) (24-44) % [place] % (Auto) (2-6) % Eos % (Auto) (2-4) % Baso % (Auto) (0-1) % PT 12.3 H (9.5-12.0) sec INR 1.13 (0.80-1.20) D-Dimer, Quantitative (0.0-400.0) ng/mL Puncture Site ABG pH (7.350-7.450) ABG pCO2 (35.0-42.0) mmHg ABG pO2 (75.0-100.0) mmHg ABG HCO3 (22.0-26.0) mmol/L ABG Total CO2 (23.0-27.0) mmol/L ABG O2 Saturation (95.0-98.0) % ABG O2 Content (15.0-23.0) %vol ABG Base Excess mm/L ABG Hemoglobin (13.5-18.0) g/dL ABG Oxyhemoglobin % ABG Carboxyhemoglobin (0.0-1.6) % ABG Methemoglobin % Giovanni Test O2 Delivery Device Oxygen Flow Rate L Sodium (140-148) mmol/L Potassium (3.6-5.2) mmol/L Chloride (100-108) mmol/L Carbon Dioxide (21-32) mmol/L Anion Gap (5.0-14.0) mmol/L BUN (7-18) mg/dL Creatinine (0.8-1.3) mg/dL Est Cr Clr Drug Dosing mL/min Estimated GFR (MDRD) (>60) Glucose (74-106) mg/dL Lactic Acid 3.2 H (0.4-2.0) mmol/L Calcium (8.5-10.1) mg/dL Ferritin (8-388) ng/ml Total Bilirubin (0.2-1.0) mg/dL Direct Bilirubin (0.0-0.2) mg/dL Indirect Bilirubin AST (15-37) U/L ALT (12-78) U/L Alkaline Phosphatase (46-116) U/L Lactate Dehydrogenase (85-227) U/L Creatine Kinase (39-308) U/L Troponin I (0.000-0.056) ng/mL C-Reactive Protein (0.0-0.3) mg/dL Total Protein (6.4-8.2) g/dL Albumin (3.4-5.0) g/dL Globulin (2.3-3.5) g/dL Albumin/Globulin Ratio (1.2-2.2) Procalcitonin 2.87 H* ng/mL 12/24/19 12/24/19 12/25/19 Range/Units 20:30 21:01 05:12 WBC 19.9 H (4.5-11.0) K/uL RBC 4.45 (4.30-5.90) M/uL Hgb 12.7 (12.0-15.0) g/dL Hct 38.9 L (40.0-54.0) % MCV 87 (80-98) fL MCH 29 (27-31) pg MCHC 33 (32-36) % Plt Count 418 H (150-400) K/uL Neut % (Auto) (36-66) % Lymph % (Auto) (24-44) % [place] % (Auto) (2-6) % Eos % (Auto) (2-4) % Baso % (Auto) (0-1) % PT (9.5-12.0) sec INR (0.80-1.20) D-Dimer, Quantitative 2670 H (0.0-400.0) ng/mL Puncture Site ABG pH (7.350-7.450) ABG pCO2 (35.0-42.0) mmHg ABG pO2 (75.0-100.0) mmHg ABG HCO3 (22.0-26.0) mmol/L ABG Total CO2 (23.0-27.0) mmol/L ABG O2 Saturation (95.0-98.0) % ABG O2 Content (15.0-23.0) %vol ABG Base Excess mm/L ABG Hemoglobin (13.5-18.0) g/dL ABG Oxyhemoglobin % ABG Carboxyhemoglobin (0.0-1.6) % ABG Methemoglobin % Giovanni Test O2 Delivery Device Oxygen Flow Rate L Sodium (140-148) mmol/L Potassium (3.6-5.2) mmol/L Chloride (100-108) mmol/L Carbon Dioxide (21-32) mmol/L Anion Gap (5.0-14.0) mmol/L BUN (7-18) mg/dL Creatinine (0.8-1.3) mg/dL Est Cr Clr Drug Dosing mL/min Estimated GFR (MDRD) (>60) Glucose (74-106) mg/dL Lactic Acid (0.4-2.0) mmol/L Calcium (8.5-10.1) mg/dL Ferritin 744 H (8-388) ng/ml Total Bilirubin (0.2-1.0) mg/dL Direct Bilirubin (0.0-0.2) mg/dL Indirect Bilirubin AST (15-37) U/L ALT (12-78) U/L Alkaline Phosphatase (46-116) U/L Lactate Dehydrogenase (85-227) U/L Creatine Kinase (39-308) U/L Troponin I 0.072 H* (0.000-0.056) ng/mL C-Reactive Protein (0.0-0.3) mg/dL Total Protein (6.4-8.2) g/dL Albumin (3.4-5.0) g/dL Globulin (2.3-3.5) g/dL Albumin/Globulin Ratio (1.2-2.2) Procalcitonin ng/mL 12/25/19 12/25/19 Range/Units 05:12 05:12 WBC (4.5-11.0) K/uL RBC (4.30-5.90) M/uL Hgb (12.0-15.0) g/dL Hct (40.0-54.0) % MCV (80-98) fL MCH (27-31) pg MCHC (32-36) % Plt Count (150-400) K/uL Neut % (Auto) (36-66) % Lymph % (Auto) (24-44) % [place] % (Auto) (2-6) % Eos % (Auto) (2-4) % Baso % (Auto) (0-1) % PT (9.5-12.0) sec INR (0.80-1.20) D-Dimer, Quantitative 2650 H (0.0-400.0) ng/mL Puncture Site ABG pH (7.350-7.450) ABG pCO2 (35.0-42.0) mmHg ABG pO2 (75.0-100.0) mmHg ABG HCO3 (22.0-26.0) mmol/L ABG Total CO2 (23.0-27.0) mmol/L ABG O2 Saturation (95.0-98.0) % ABG O2 Content (15.0-23.0) %vol ABG Base Excess mm/L ABG Hemoglobin (13.5-18.0) g/dL ABG Oxyhemoglobin % ABG Carboxyhemoglobin (0.0-1.6) % ABG Methemoglobin % Giovanni Test O2 Delivery Device Oxygen Flow Rate L Sodium 136 L (140-148) mmol/L Potassium 4.1 (3.6-5.2) mmol/L Chloride 100 (100-108) mmol/L Carbon Dioxide 26 (21-32) mmol/L Anion Gap 14.1 H (5.0-14.0) mmol/L BUN 20 H (7-18) mg/dL Creatinine 1.2 (0.8-1.3) mg/dL Est Cr Clr Drug Dosing 74.65 mL/min Estimated GFR (MDRD) > 60 (>60) Glucose 165 H (74-106) mg/dL Lactic Acid (0.4-2.0) mmol/L Calcium 8.8 (8.5-10.1) mg/dL Ferritin (8-388) ng/ml Total Bilirubin 0.4 (0.2-1.0) mg/dL Direct Bilirubin (0.0-0.2) mg/dL Indirect Bilirubin AST 95 H (15-37) U/L ALT 110 H (12-78) U/L Alkaline Phosphatase 104 (46-116) U/L Lactate Dehydrogenase 428 H (85-227) U/L Creatine Kinase (39-308) U/L Troponin I (0.000-0.056) ng/mL C-Reactive Protein 55.30 H (0.0-0.3) mg/dL Total Protein 7.4 (6.4-8.2) g/dL Albumin 2.2 L (3.4-5.0) g/dL Globulin 5.2 H (2.3-3.5) g/dL Albumin/Globulin Ratio 0.4 L (1.2-2.2) Procalcitonin ng/mL Med Orders - Current: Current Medications Acetaminophen (Tylenol) 650 mg PO Q4H PRN PRN Reason: Fever Greater Than 101 Last Admin: 12/24/19 20:24 Dose: 650 mg Documented by: Benzonatate (Tessalon Perles) 100 mg PO TID PRN PRN Reason: Cough Dexamethasone (Dexamethasone) 6 mg PO Q24H COUNT INCLUDES THE [facility] Doxycycline Hyclate (Vibramycin) 100 mg PO Q12H COUNT INCLUDES THE [facility] Last Admin: 12/25/19 10:16 Dose: 100 mg Documented by: Enoxaparin Sodium (Lovenox) 40 mg SUBCUT Q12H COUNT INCLUDES THE [facility] Last Admin: 12/25/19 00:43 Dose: 40 mg Documented by: Guaifenesin/Dextromethorphan (Robitussin Dm) 10 ml PO Q4H PRN PRN Reason: Cough Remdesivir 100 mg/ Sodium (Chloride) 100 mls @ 100 mls/hr IV Q24H COUNT INCLUDES THE [facility] Stop: 12/29/19 00:44 Cefepime HCl 1 gm/ Sodium (Chloride) 50 mls @ 100 mls/hr IV Q12H COUNT INCLUDES THE [facility] Last Admin: 12/25/19 10:16 Dose: 100 mls/hr Documented by: Loperamide HCl (Imodium) 2 mg PO Q4H PRN PRN Reason: Diarrhea Last Admin: 12/25/19 00:47 Dose: 2 mg Documented by: Lorazepam (Ativan) 0.5 mg IVPUSH Q4H PRN PRN Reason: Nausea/Vomiting Ondansetron HCl (Zofran) 4 mg IV Q6H PRN PRN Reason: Nausea/Vomiting Ondansetron HCl (Zofran Odt) 4 mg PO Q6H PRN PRN Reason: Nausea able to take PO Pantoprazole Sodium (Protonix) 40 mg PO ACBREAKFAST COUNT INCLUDES THE [facility] Last Admin: 12/25/19 08:47 Dose: 40 mg Documented by: Senna/Docusate Sodium (Senna Plus) 1 tab PO BID PRN PRN Reason: Constipation Sodium Chloride (Saline Flush) 10 ml FLUSH ASDIRECTED PRN PRN Reason: Keep Vein Open Last Admin: 12/24/19 20:32 Dose: 10 ml Documented by: Discontinued Medications Albuterol/Ipratropium (Combivent Respimat) 1 gm INH QID COUNT INCLUDES THE [facility] Last Admin: 12/24/19 20:52 Dose: 2 inh Documented by: Dexamethasone (Dexamethasone) 6 mg PO ONETIME ONE Stop: 12/24/19 22:54 Last Admin: 12/24/19 23:05 Dose: 6 mg Documented by: Lactated Ringer's (Ringers, Lactated) 1,000 mls @ 999 mls/hr IV ASDIRECTED COUNT INCLUDES THE [facility] Last Admin: 12/24/19 20:33 Dose: 999 mls/hr Documented by: Lactated Ringer's (Ringers, Lactated) 1,000 mls @ 999 mls/hr IV BOLUS ONE Stop: 12/24/19 22:26 Last Admin: 12/24/19 21:49 Dose: 999 mls/hr Documented by: Cefepime HCl 1 gm/ Sodium (Chloride) 50 mls @ 100 mls/hr IV Q12H COUNT INCLUDES THE [facility] Last Admin: 12/25/19 10:21 Dose: Not Given Documented by: Doxycycline Hyclate 100 mg/ (Sodium Chloride) 100 mls @ 100 mls/hr IV ONETIME ONE Stop: 12/24/19 22:54 Last Admin: 12/24/19 22:17 Dose: 100 mls/hr Documented by: Remdesivir 200 mg/ Sodium (Chloride) 250 mls @ 250 mls/hr IV ONETIME ONE Stop: 12/24/19 23:53 Last Admin: 12/25/19 00:50 Dose: 250 mls/hr Documented by: - Exam Quality Assessment: Supplemental Oxygen General: Alert, Oriented, Cooperative, No Acute Distress HEENT: No: Scleral Icterus Neck: Supple Lungs: Normal Respiratory Effort, Crackles (mild both bases) Cardiovascular: Regular Rate, Regular Rhythm GI/Abdominal Exam: Soft, No Distention Extremities: No Pedal Edema. No: Increased Warmth Skin: Warm, Dry Psy/Mental Status: Alert, Normal Affect Sepsis Event Note - Evaluation Sepsis Screening Result: Severe Sepsis Risk - Focused Exam Vital Signs: Vital Signs Temp Temp Pulse Pulse Resp BP BP 12/25/19 08:55 89 31 H 140/83 12/25/19 08:00 35.9 C L 88 24 H 140/83 12/25/19 07:40 90 31 H 116/72 12/25/19 06:00 36.1 C 89 29 H 124/67 12/25/19 05:00 97 25 H 128/75 12/25/19 04:00 20 130/70 12/25/19 03:00 36.0 C L 97 22 H 155/95 H 12/25/19 02:00 36.0 C L 98 24 H 136/78 12/25/19 01:00 35.8 C L 97 21 H 127/77 12/25/19 00:00 35.6 C L 100 12 142/89 H 12/24/19 23:00 35.3 C L 103 H 21 H 147/96 H Pulse Ox 12/25/19 08:55 88 L 12/25/19 08:00 87 L 12/25/19 07:40 84 L 12/25/19 06:00 93 L 12/25/19 05:00 91 L 12/25/19 04:00 90 L 12/25/19 03:00 92 L 12/25/19 02:00 89 L 12/25/19 01:00 91 L 12/25/19 00:00 95 12/24/19 23:00 86 L - Problem List & Annotations (1) Pneumonia due to COVID-19 virus SNOMED Code(s): 079646551432993088 Code(s): U07.1 - COVID-19; J12.89 - OTHER VIRAL PNEUMONIA Status: Acute Current Visit: Yes (2) Acute hypoxemic respiratory failure due to COVID-19 SNOMED Code(s): 171606106 Code(s): U07.1 - COVID-19; J96.01 - ACUTE RESPIRATORY FAILURE WITH HYPOXIA Status: Acute Current Visit: Yes (3) Acute kidney injury SNOMED Code(s): 30396467, 70010529 Code(s): N17.9 - ACUTE KIDNEY FAILURE, UNSPECIFIED Status: Acute Current Visit: Yes - Problem List Review Problem List Initiated/Reviewed/Updated: Yes - My Orders Last 24 Hours: My Active Orders 12/24/19 23:30 Resuscitation Status Routine 12/24/19 23:52 Benzonatate [Tessalon Perles] 100 mg PO TID PRN Dextromethorphan/guaiFENesin [Robitussin DM] 10 ml PO Q4H PRN Docusate Sodium/Sennosides [Senna Plus] 1 tab PO BID PRN Enoxaparin [Lovenox] 40 mg SUBCUT Q12H LORazepam [Ativan] 0.5 mg IVPUSH Q4H PRN Ondansetron [Zofran ODT] 4 mg PO Q6H PRN Ondansetron [Zofran] 4 mg IV Q6H PRN 12/24/19 23:52 Patient Status [ADT] Routine Cardiac Monitoring [RC] Q6H Communication Order [RC] ROUTINE Intake and Output [RC] QSHIFT Notify Provider Vital Signs [RC] ASDIRECTED Oxygen Therapy [RC] PRN Pulse Oximetry [RC] CONTINUOUS Up With Assistance [RC] ASDIRECTED VTE/DVT Education [RC] Per Unit Routine Vital Signs [RC] Q1HR 12/25/19 00:22 Loperamide [Imodium] 2 mg PO Q4H PRN 12/25/19 07:00 Height and Weight [RC] DAILY 12/25/19 07:30 Pantoprazole [ProTONIX] 40 mg PO ACBREAKFAST 12/25/19 10:40 TROPONIN I [CHEM] Routine 12/25/19 11:00 Doxycycline [Vibramycin] 100 mg PO Q12H 12/25/19 23:00 dexAMETHasone 6 mg PO Q24H 12/25/19 23:45 Remdesivir (Eua) [Remdesivir (EUA)] 100 mg Sodium Chloride 0.9% [Normal Saline] 100 ml IV Q24H 12/26/19 05:00 C-REACTIVE PROTEIN [CHEM] Timed CBC W/O DIFF,HEMOGRAM [HEME] Timed (1) COMPREHENSIVE METABOLIC PN,CMP [CHEM] Timed D-DIMER QUANTITATIVE [COAG] Timed LACTATE DEHYDROGENASE,LDH [CHEM] Timed PROCALCITONIN [CHEM] Routine - Plan Plan:: ASSESSMENT AND PLAN - COVID-19 infection with bilateral pneumonia and acute respiratory failure with hypoxemia-slightly better than last night but still significantly compromised. Only able to tolerate prone positioning intermittently. Tolerating medication so far. -Dexamethasone 6 mg every 24 hours -Remdesivir 100 mg daily x4 (today is day 1 of 4) -Enoxaparin 40 mg every 12 hours -Supplement oxygen as needed -Prone positioning as much as he can tolerate -Daily weights -Cardiac monitoring and pulse oximetry -Consider transfer to higher level of care if condition deteriorates Acute kidney injury-creatinine has improved since admission but is not back to baseline. Urine output has not been impressive so far. -Encourage p.o. intake -Recheck labs in the morning Maintenance issues - - DVT prophylaxis -enoxaparin - GI prophylaxis -PPI - Nutrition -regular diet as tolerated Disposition -anticipate discharge home after the hospital stay Family was updated this afternoon. Joel Gomez M.D.
[2019-12-25] MEDS: Enoxaparin 40 MG/0.4 ML Syringe SUBCUT SCH ×2 (11:58→23:37)
[2019-12-25] MEDS: Acetaminophen 325 MG Tab PO PRN (19:37)
[2019-12-25] MEDS ORDERED: Sodium Chloride 0.65% Nasal Spray 45 ML Bottle NAS PRN (21:37)
[2019-12-25] MEDS ORDERED: Dexamethasone 4 MG Tab PO SCH (23:00)
[2019-12-25] MEDS ORDERED: REMDESIVIR (EUA) 100 MG in Sodium Chloride 0.9% 100 ML IV SCH (23:45)
[2019-12-26] MEDS: Acetaminophen 325 MG Tab PO PRN (01:25)
[2019-12-26] MEDS ORDERED: propofoL 100 ML ONE (05:03)
[2019-12-26] MEDS ORDERED: Succinylcholine 200 MG/10 ML MDV ONE (05:03)
[2019-12-26] MEDS ORDERED: Propofol 200 MG/20 ML SDV ONE (05:03)
[2019-12-26] MEDS ORDERED: LORazepam 2 MG/ML SDV IVPUSH STA (06:07)
[2019-12-26] MEDS: propofoL 100 ML IV SCH ×2 (06:14→07:19)
--- NOTE | 2019-12-26 07:00 | PCM.DCSUM1 ---
Discharge Summary - Hospital Course Brief History: Healthy 59 yr old Covid positive male who presented with progressive shortness of breath, cough as well as high fevers. He was admitted to the intensive care unit for management of acute hypoxic respiratory failure secondary to bilateral pneumonia in the setting of COVID-19 infection. Diagnosis: Stroke: No - Discharge Data Discharge Date: 12/26/19 Discharge Disposition: DC/Tfer to [place] [address] Condition: Critical - Referral to Home Health Primary Care Physician: PCP None - Discharge Diagnosis/Problem(s) (1) Pneumonia due to COVID-19 virus SNOMED Code(s): 409225032050746064 ICD Code: U07.1 - COVID-19; J12.89 - OTHER VIRAL PNEUMONIA Status: Acute Current Visit: Yes (2) Acute hypoxemic respiratory failure due to COVID-19 SNOMED Code(s): 446156341 ICD Code: U07.1 - COVID-19; J96.01 - ACUTE RESPIRATORY FAILURE WITH HYPOXIA Status: Acute Current Visit: Yes (3) Acute kidney injury SNOMED Code(s): 48364362, 17576274 ICD Code: N17.9 - ACUTE KIDNEY FAILURE, UNSPECIFIED Status: Acute Current Visit: Yes - Patient Summary/Data Hospital Course: Yaniv presented to the emergency room with 3 days of progressive cough, shortness of breath and high fevers. At the time of presentation he was on about day 8 of symptoms of the Covid infection with more rapid progression over the last 3. Upon arrival to the emergency room he was noted to be in significant respiratory distress and initial oxygen saturations were in the 40s. He was placed on a nonrebreather mask at 15 L and did eventually improve and stabilize. Chest x- ray showed bilateral lower lung infiltrates and a possible right middle lobe infiltrate. Laboratory studies showed leukocytosis with a white blood cell count of 23,000. Creatinine was elevated at 1.6, D-dimer 2600, lactic acid and LDH were both elevated. CRP was elevated at more than 40. Troponin was very mildly elevated at 0.07. procalcitonin was elevated at 2.87. He was started on dexamethasone and remdesivir for the Covid infection. With the high white count and elevated procalcitonin we did elect to start empiric antibiotics as well. We initiated doxycycline and cefepime. Overnight following admission there were no acute issues and by the morning after admission he seemed to be doing a little bit better. He was on 10 to 12 L of oxygen via high flow nasal cannula. Laboratory studies were essentially stable from the day before. Symptomatically he was feeling better. Throughout the day he did fairly well. Overnight he had a slow deterioration with slight increase in his supplemental oxygen requirements. On the morning of discharge he removed his oxygen and monitoring equipment and came out into the hallway confused. He collapsed to the floor and fortunately did not injure himself. JACKIE MCMLILAN was called at this point mostly to mobilize assistance. Once he got back in bed he was on 15 L via facemask and 10 L via high flow nasal cannula and unfortunately remained hypoxic. The decision was made to intubate at this point. He was successfully intubated by the anesthesia team. Tube placement was confirmed with chest x-ray. Mechanical ventilation was initiated with respiratory therapy. Initial ventilator settings were AC 400 26 100% +15. Blood gases showed a very mild acidosis at 7.34 and a slight elevation of his PCO2 at 45. I discussed the situation with his . We decided that it would be best to get him to a higher level of care with pulmonary/critical care management. I called [facility] in [place] and Dr. Cruz with the critical care team graciously accepted his care and transfer. He is going to be transferred via helicopter to [place] for inpatient management in their intensive care unit. He did receive a dose of vancomycin prior to transfer. At this point the benefits of transfer outweigh the risks. - Patient Instructions Diet: NPO Activity: Bedrest Other/Special Instructions: Transfer to [facility] via [facility] Dr Cruz accepting - Discharge Plan *PRESCRIPTION DRUG MONITORING PROGRAM REVIEWED*: Not Applicable *COPY OF PRESCRIPTION DRUG MONITORING REPORT IN PATIENT AFSHAN: Not Applicable Home Medications: Home Meds NK [No Known Home Meds] 12/24/19 [History] Oxygen Therapy Mode: Mechanical Ventilation Forms: ED Department Discharge Referrals: PCP,None [Primary Care Provider] - - Discharge Summary/Plan Comment DC Time >30 min.: Yes (60-transfer to acute hospital ) - Patient Data Vitals - Most Recent: Last Vital Signs Temp 35.7 C L 12/26/19 03:00 Pulse 86 12/26/19 04:00 Resp 39 H 12/26/19 04:00 BP 109/63 12/26/19 04:00 Pulse Ox 89 L 12/26/19 04:00 Weight - Most Recent: 102.058 kg I&O - Last 24 hours: Intake & Output 12/25/19 12/25/19 12/26/19 14:59 22:59 06:59 Intake Total 1100 750 Balance 1100 750 Lab Results - Last 24 hrs: Laboratory Results - last 24 hr 12/25/19 12/26/19 12/26/19 Range/Units 10:40 05:00 06:04 WBC 21.8 H (4.5-11.0) K/uL RBC 4.26 L (4.30-5.90) M/uL Hgb 12.4 (12.0-15.0) g/dL Hct 37.9 L (40.0-54.0) % MCV 89 (80-98) fL MCH 29 (27-31) pg MCHC 33 (32-36) % Plt Count 390 (150-400) K/uL Puncture Site Lt radial ABG pH 7.341 L (7.350-7.450) ABG pCO2 45.4 H (35.0-42.0) mmHg ABG pO2 146.0 H (75.0-100.0) mmHg ABG HCO3 23.9 (22.0-26.0) mmol/L ABG Total CO2 21.8 L (23.0-27.0) mmol/L ABG O2 Saturation 98.4 H (95.0-98.0) % ABG O2 Content 17.2 (15.0-23.0) %vol ABG Base Excess -1.4 mm/L ABG Hemoglobin 12.5 L (13.5-18.0) g/dL ABG Oxyhemoglobin 96.7 % ABG Carboxyhemoglobin 0.8 (0.0-1.6) % ABG Methemoglobin 0.9 % Giovanni Test Passed O2 Delivery Device Ventilator Oxygen Flow Rate L Troponin I < 0.017 (0.000-0.056) ng/mL KEVIN Results - Last 24 hrs: Microbiology 12/24/19 21:30 Aerobic Blood Culture - Preliminary Blood - Arm, Left NO GROWTH AFTER 1 DAY Anaerobic Blood Culture - Preliminary NO GROWTH AFTER 1 DAY 12/24/19 21:42 Aerobic Blood Culture - Preliminary Blood - Arm, Right NO GROWTH AFTER 1 DAY Anaerobic Blood Culture - Preliminary NO GROWTH AFTER 1 DAY Med Orders - Current: Current Medications Acetaminophen (Tylenol) 650 mg PO Q4H PRN PRN Reason: Fever Greater Than 101 Last Admin: 12/25/19 19:37 Dose: 650 mg Documented by: Benzonatate (Tessalon Perles) 100 mg PO TID PRN PRN Reason: Cough Dexamethasone 4 mg/ (Dexamethasone 2 mg) 6 mg PO Q24H [facility] Last Admin: 12/25/19 21:20 Dose: 6 mg Documented by: Doxycycline Hyclate (Vibramycin) 100 mg PO Q12H [facility] Last Admin: 12/25/19 23:37 Dose: 100 mg Documented by: Enoxaparin Sodium (Lovenox) 40 mg SUBCUT Q12H [facility] Last Admin: 12/25/19 23:37 Dose: 40 mg Documented by: Guaifenesin/Dextromethorphan (Robitussin Dm) 10 ml PO Q4H PRN PRN Reason: Cough Remdesivir 100 mg/ Sodium (Chloride) 100 mls @ 100 mls/hr IV Q24H [facility] Stop: 12/29/19 00:44 Last Admin: 12/25/19 23:37 Dose: 100 mls/hr Documented by: Cefepime HCl 1 gm/ Sodium (Chloride) 50 mls @ 100 mls/hr IV Q12H [facility] Last Admin: 12/25/19 21:20 Dose: 100 mls/hr Documented by: Propofol (Diprivan 100 Ml) 100 mls @ 18.37 mls/hr IV TITRATE [facility]; Protocol Last Admin: 12/26/19 06:14 Dose: 78.39 mcg/kg/min, 48 mls/hr Documented by: Vancomycin HCl 1.5 gm/ Sodium (Chloride) 250 mls @ 150 mls/hr IV ONETIME STA Stop: 12/26/19 08:20 Loperamide HCl (Imodium) 2 mg PO Q4H PRN PRN Reason: Diarrhea Last Admin: 12/25/19 16:50 Dose: 2 mg Documented by: Lorazepam (Ativan) 0.5 mg IVPUSH Q4H PRN PRN Reason: Nausea/Vomiting Ondansetron HCl (Zofran) 4 mg IV Q6H PRN PRN Reason: Nausea/Vomiting Ondansetron HCl (Zofran Odt) 4 mg PO Q6H PRN PRN Reason: Nausea able to take PO Pantoprazole Sodium (Protonix) 40 mg PO ACBREAKFAST [facility] Last Admin: 12/25/19 08:47 Dose: 40 mg Documented by: Senna/Docusate Sodium (Senna Plus) 1 tab PO BID PRN PRN Reason: Constipation Sodium Chloride (Saline Flush) 10 ml FLUSH ASDIRECTED PRN PRN Reason: Keep Vein Open Last Admin: 12/24/19 20:32 Dose: 10 ml Documented by: Sodium Chloride ([place] Nasal Meridian) 0 ml TORRIE Q2H PRN PRN Reason: Other Last Admin: 12/25/19 23:38 Dose: 1 bottle Documented by: Discontinued Medications Albuterol/Ipratropium (Combivent Respimat) 1 gm INH QID [facility] Last Admin: 12/24/19 20:52 Dose: 2 inh Documented by: Dexamethasone (Dexamethasone) 6 mg PO ONETIME ONE Stop: 12/24/19 22:54 Last Admin: 12/24/19 23:05 Dose: 6 mg Documented by: Dexamethasone (Dexamethasone) 6 mg PO Q24H [facility] Enoxaparin Sodium (Lovenox) 40 mg SUBCUT Q12H [facility] Last Admin: 12/25/19 00:43 Dose: 40 mg Documented by: Lactated Ringer's (Ringers, Lactated) 1,000 mls @ 999 mls/hr IV ASDIRECTED [facility] Last Admin: 12/24/19 20:33 Dose: 999 mls/hr Documented by: Lactated Ringer's (Ringers, Lactated) 1,000 mls @ 999 mls/hr IV BOLUS ONE Stop: 12/24/19 22:26 Last Admin: 12/24/19 21:49 Dose: 999 mls/hr Documented by: Cefepime HCl 1 gm/ Sodium (Chloride) 50 mls @ 100 mls/hr IV Q12H [facility] Last Admin: 12/25/19 10:21 Dose: Not Given Documented by: Doxycycline Hyclate 100 mg/ (Sodium Chloride) 100 mls @ 100 mls/hr IV ONETIME ONE Stop: 12/24/19 22:54 Last Admin: 12/24/19 22:17 Dose: 100 mls/hr Documented by: Remdesivir 200 mg/ Sodium (Chloride) 250 mls @ 250 mls/hr IV ONETIME ONE Stop: 10/21/20 23:53 Last Admin: 12/25/19 00:50 Dose: 250 mls/hr Documented by: Propofol (Diprivan 100 Ml) Confirm Administered Dose 100 mls @ as directed .ROUTE .STK-MED ONE Stop: 12/26/19 05:04 Last Admin: 12/26/19 06:16 Dose: Not Given Documented by: Lorazepam (Ativan) 1 mg IVPUSH ONETIME STA Stop: 12/26/19 06:08 Last Admin: 12/26/19 06:18 Dose: 1 mg Documented by: Propofol (Diprivan 20 Ml) Confirm Administered Dose 200 mg .ROUTE .STK-MED ONE Stop: 12/26/19 05:04 Succinylcholine Chloride (Quelicin) Confirm Administered Dose 200 mg .ROUTE .STK-MED ONE Stop: 12/26/19 05:04 - Exam Quality Assessment: Reports: Supplemental Oxygen General: Reports: Sedated Lungs: Reports: Crackles (both bases ). Denies: Normal Respiratory Effort (increased resp rate ) Cardiovascular: Reports: Regular Rhythm, Tachycardia GI/Abdominal Exam: Soft, No Distention Extremities: No Pedal Edema. No: Increased Warmth Skin: Reports: Warm, Dry Psy/Mental Status: Reports: Other (sedated). Denies: Agitated
--- NOTE | 2019-12-26 07:07 | ANES ---
DATE OF SERVICE: 12/26/2019 I was called early this morning for a gentleman that they had called a Code Blue on in the ICU, who is a known COVID patient and some respiratory distress. I was at the bedside at approximately 5 a.m. The patient was in the prone position. O2 saturation was anywhere from 88% to 89% in the prone position on 15 L non-rebreather mask. The patient was responsive right away. I was told by the nurses that Dr. Gomez wanted to come in and assess before we decided to intubate or not. Dr. Gomez was there shortly after that and after his assessment he decided to intubate the patient. At that point, I had got on my PPE on, N95 mask, eye protection, and a gown. Went into the room at that time. Like I said the patient was in the prone position. O2 saturation was approximately 88% to 89% in the prone position on 15 L non-rebreather mask. On my exam, was prepared. The patient was then turned supine and at that time I bag valve masked the patient for 30 seconds. O2 saturations did drop a little bit into the mid 80s at that time. I then proceeded to give the patient 140 mg of propofol and 120 mg of succinylcholine. The patient then was intubated using a MAC 3 blade. Grade 1 view of the vocal cords was noted. 8.0 endotracheal tube was then placed through the vocal cords and originally placed at 24 cm at the teeth. The patient was then Ambu'd and bilateral breath sounds were noted by Dr. Gomez. Good end- tidal CO2 changes were also noted. O2 saturations did drop down into the high 70s after intubation and maintained there even though we were adequately Amubuing the patient. Chest x-ray was then taken, was noted that his endotracheal tube was needed to be inserted a couple of more centimeters, so endotracheal tube was then advanced down to 26 at the teeth and was resecured at that position. A 2nd x-ray was then taken, was noted that we were in a better position, but still above the bety. Dr. Gomez then again listened to the chest sounds and he could hear easily bilaterally. Like I said, O2 saturations did maintain about mid 70s to low 80s in the supine position. Did turn the patient back into a prone position and Respiratory Therapy was there shortly after we positioned him back into prone and he was placed on the ventilator per Respiratory Therapy. Prior to leaving, it was noted that his O2 saturation were in the mid 80s to high 80s after turning him back to prone and putting him on a ventilator. I talked to Dr. Gomez. He did not want me to start an arterial line at that time because he believes he is going to transfer the patient out to a bigger facility, but we will be available if needed for an arterial line placement. Blood pressures did maintain throughout the whole thing, had no difficulty there. Please refer to the nurse's notes for any other vital signs. Chester Powers CRNA /[id number]
[2019-12-26] MEDS: Pantoprazole 40 MG Tab.CR PO SCH (08:25)
--- NOTE | 2019-12-26 09:22 | CR ---
CHEST: Portable 12/26/2019 at 5:29 AM CLINICAL HISTORY:Intubation COMPARISON:12/24/2019 FINDINGS: Patient has been intubated. Endotracheal tube is in the mid trachea approximately 9 cm from the bety on image #1. It appears to be advanced on image #2 where it measures a proximally 6 cm from the bety. Clinical correlation is necessary. There are diffuse bilateral pulmonary infiltrates. IMPRESSION: Endotracheal intubation. Tube position as above Diffuse bilateral pulmonary infiltrates increased since prior study
== END 2019-12-26 09:00 | DRG 137 ==
LOC: JP.ED 20:02 → JP.ICU 23:28
PROVIDERS: ADMIT Internal Medicine; ATTEND Internal Medicine
DX: U07.1 COVID-19 (principal); J12.89 Other viral pneumonia; J96.01 Acute respiratory failure with hypoxia; N17.9 Acute kidney failure, unspecified
CPT/HCPCS: 36415; 36600; 71045; 71045-26; 80048; 80053; 80076; 82550; 82728; 82803; 83605; 83615; 84145; 84484; 85025; 85027; 85379; 85610; 86140; 87040; 94002; 96365; 96368; 99285-25; A9270-GY; J0330; J0692; J1650; J2060; J2704; J3370; J3490; J7050; J7120; J8540

== ENCOUNTER 2020-10-01 09:54 | Day surgery (SDC) | payer BC ==
[~2020-10-01 09:54] MED LIST: Midazolam 1 MG/ML 2 ML SDV ONE; Propofol 200 MG/20 ML SDV ONE
[2020-10-01] MEDS ORDERED: fentaNYL 100 MCG/2 ML SDV ONE (10:03)
[2020-10-01] MEDS ORDERED: Sodium Chloride 0.9% 1,000 ML IV SCH (10:30)
--- NOTE | 2020-10-01 15:28 | OR ---
DATE OF PROCEDURE: 10/01/2020 SURGEON: Fran Burnett MD PROCEDURE PERFORMED: Colonoscopy. FINDINGS: Normal colonoscopy. COMPLICATIONS: None. [employer]OR [employer] REPAIR: None. ANESTHESIA: MAC. PREOPERATIVE DIAGNOSIS: Screening colonoscopy. POSTOPERATIVE DIAGNOSIS: Screening colonoscopy. RISKS: Risks, benefits, alternatives, and limitations including, but not limited to infection, bleeding, perforation, false positives, and false negatives were explained to the patient who wished to proceed. PROCEDURE IN DETAIL: The patient was placed in the left lateral decubitus position. Digital rectal exam was performed without abnormality. The scope was introduced and advanced atraumatically to the ileocecal valve. A photo was taken of the appendiceal orifice. The scope was brought back through the ascending, transverse, descending colon, and retroflexed. No evidence of old or new blood. No masses. No polyps. No diverticulosis. No abnormalities on retroflex. Greater than 8 minutes was spent removing the scope. The prep was acceptable. Approximately 90% of the luminal surface could be seen. The patient tolerated the procedure well. Fran Burnett MD /[id number]
== END 2020-10-01 13:30 | disposition home or self-care (01) ==
LOC: JP.SDS 09:54
PROVIDERS: ATTEND Surgery
DX: Z12.11 Encounter for screening for malignant neoplasm of colon (principal); J96.90 Respiratory failure, unspecified, unspecified whether with hypoxia or hypercapnia; Z86.19 Personal history of other infectious and parasitic diseases
CPT/HCPCS: 45378; J2250; J2704; J3010; J7030

== ENCOUNTER 2021-04-03 08:22 | Emergency (ER) | payer BC ==
[2021-04-03] MEDS ORDERED: Sodium Chloride 0.9% 1,000 ML IV SCH ×3 (09:00→11:55)
[2021-04-03] MEDS ORDERED: Ondansetron 4 MG/2 ML SDV IVPUSH ONE (09:01)
[2021-04-03] MEDS ORDERED: Ketorolac 30 MG/ML SDV IVPUSH ONE (09:24)
[2021-04-03 09:43] LABS: CORONAVIRUS COVID-19 NAA NEGATIVE (NEGATIVE)
[2021-04-03] MEDS ORDERED: Fluconazole 100 MG Tab PO ONE (10:40)
== END 2021-04-03 14:47 | disposition home or self-care (01) ==
LOC: JP.ED 08:22
DX: K52.9 Noninfective gastroenteritis and colitis, unspecified (principal); B37.0 Candidal stomatitis; E86.0 Dehydration; Z20.822 Contact with and (suspected) exposure to COVID-19
CPT/HCPCS: 0241U; 36415; 80053; 83735; 85025; 86140; 87220; 96374; 96375; 99284; A9270; J1885; J2405; J7030